=== PATIENT | male | born 1960 | race Caucasian/White ===

== ENCOUNTER 2018-02-15 08:09 | Inpatient (IN) | payer BC ==
[2018-02-08 14:36] LABS: CLARITY,URINE CLEAR (Clear); COLOR,URINE YELLOW (Yellow); GLUCOSE, URINE NEGATIVE (Neg); KETONES,URINE TRACE mg/dl (Neg); LEUKOCYTE ESTERASE ,URINE NEGATIVE (Neg); NITRITES, URINE NEGATIVE (Neg); OCCULT BLOOD,URINE NEGATIVE (Neg); PROTEIN,URINE NEGATIVE (Neg); UROBILINOGEN,URINE 0.2 E.U/dL (0.2-1.0)
[2018-02-08 14:41] LABS: BASOPHILS # (AUTO) 0.1 X10'3 (0-0.2); BASOPHILS % (AUTO) 1.1 % (0-1); EOSINOPHILS # (AUTO) 0.2 X10'3 (0-0.9); EOSINOPHILS % (AUTO) 2.4 % (0-6); LYMPHOCYTES # (AUTO) 1.4 X10'3 (1.1-4.8); LYMPHOCYTES % (AUTO) 20.7 % (21-51); MEAN CORPUSCULAR HEMOGLOBIN 33.6 PG (27.0-31.0); MEAN CORPUSCULAR HGB CONC 34.8 % (33.0-36.5); MEAN CORPUSCULAR VOLUME 96.6 FL (78-98); MEAN PLATELET VOLUME 7.4 FL (7.4-10.4); MONOCYTES # (AUTO) 0.5 X10'3 (0-0.9); MONOCYTES % (AUTO) 6.9 % (2-12); NEUTROPHILS # (AUTO) 4.7 X10'3 (1.8-7.7); NEUTROPHILS % (AUTO) 68.9 % (42-75); PRE OP HEMATOCRIT 45.4 % (42.0-52.0); PRE OP HEMOGLOBIN 15.8 g/dL (14.0-17.9); PRE OP PLATELET COUNT 335 X10'3 (140-440); RED CELL DISTRIBUTION WIDTH 13.2 % (11.5-14.5)
[2018-02-08 14:50] LABS: ALBUMIN 4.4 G/DL (3.4-5.0); ALBUMIN/GLOBULIN RATIO 1.2 (1.1-1.5); ALKALINE PHOSPHATASE 89 IU/L (46-116); BLOOD UREA NITROGEN 10 MG/DL (7-18); BUN/CREATININE RATIO 12.2 (5.4-32.0); CALCIUM 9.3 MG/DL (8.5-10.1); CHLORIDE 96 MMOL/L (99-107); CREATININE 0.82 MG/DL (0.60-1.10); PRE OP ALT 34 U/L (30-65); PRE OP ANION GAP 11 (8-16); PRE OP BILIRUB, TOTAL 0.6 MG/DL (0.0-1.0); PRE OP GLUCOSE 91 MG/DL (70-104); PRE OP SODIUM 133 MMOL/L (135-145); TOTAL CARBON DIOXIDE 26.5 MMOL/L (24-32); TOTAL PROTEIN 8.1 G/DL (6.4-8.2); eGFR > 90 ML/MIN
[2018-02-08 14:52] LABS: UA COLLECTION TYPE VOIDED
[2018-02-08 14:59] LABS: PRE OP AST 36 U/L (10-37); PRE OP POTASSIUM 4.2 MMOL/L (3.4-5.1)
[2018-02-15] VITALS (18 sets, daily range): BP systolic 90–124; BP diastolic 39–72
[~2018-02-15] VITALS: Ht 182.9 cm; Wt 103.2 kg
[2018-02-15] MEDS: potassium cl 20mEq in 1/2 NS 1,000 ML IV SCH ×2 (06:56→17:02)
[2018-02-15] MEDS: cefazolin/dext.iso 2gm/100ml 100 ML IV SCH ×2 (08:00→17:08)
[2018-02-15] MEDS: multivitamins, therapeutics tablet PO SCH (08:00)
[2018-02-15] MEDS: ascorbic acid 500mg tablet PO SCH ×2 (08:00→20:02)
[~2018-02-15 08:09] MED LIST: AMLO2.5T2 PO; ASCO500C15 PO; CYA500T PO; HYDR12.5 PO; HYDROcodone/acetaminophen 10/325mg tab PO PRN; HYDROmorphone 1 mg/ml syringe IV PRN; HYDROmorphone inj. 0.5 MG/0.5 ML DISP.SYRIN IV PRN; LOSA50TA3 PO; MULT-1085 PO; SIMV20TA5 PO; acetaminophen 325mg tablet PO ONE; acetaminophen 325mg tablet PO PRN; bisacodyl 10mg suppository rectal RC PRN; cefazolin/dext.iso 2gm/100 ML IV ONE; celeCOXIB 100mg capsule PO ONE; diphenhydrAMINE 25mg capsule PO PRN; famotidine 20mg tablet PO ONE; gabapentin 300mg capsule PO ONE; magnesium hydroxide 30ml (MOM) UD suspension PO PRN; metoclopramide 5 mg/ml inj IV ONE; ondansetron/PF 4mg/2ml inj IV PRN; oxyCODONE SR 10mg (sust. release) tab -2 tabs (20mg) PO ONE; ringers solution, lacted 1,000 ML IV SCH; tranexamic acid inj. 1,000 MG in normal saline 100ml IV soln 100 ML IV ONE; tranexamic acid inj. 1,000 MG in normal saline 100ml IV soln 90 ML IV ONE; vancomycin inj 1,500 MG in normal saline 300ml IV soln IV ONE
[2018-02-15] MEDS: aspirin 325mg tablet PO SCH (08:30)
[2018-02-15] MEDS ORDERED: LIDOcaine 1% (10mg/ml) 2ml vial ONE (08:41)
[2018-02-15] MEDS ORDERED: tetracaine 1% (10mg/ml) pres. free inj. ONE (09:11)
[2018-02-15] MEDS ORDERED: fentaNYL/PF 50MCG/1 ML 2ML syringe ONE (09:13)
[2018-02-15] MEDS ORDERED: MIDAZolam 1mg/ml 10ml vial ONE (09:13)
[2018-02-15] MEDS ORDERED: BUPIVAcaine/dex-water/PF 7.5 mg/ml 2ml ampul ONE (09:14)
[2018-02-15] MEDS ORDERED: epiNEPHrine 1 mg/ml inj ONE (09:34)
[2018-02-15] MEDS ORDERED: ketorolac trometh. 30mg/ml inj. ONE ×2 (09:34→11:14)
[2018-02-15] MEDS ORDERED: ROPIVAcaine 0.5% (5mg/ml) 30ml vial ONE ×3 (09:35→11:14)
[2018-02-15] MEDS ORDERED: cloNIDine hcl/PF 100mcg/ml inj ONE (09:35)
[2018-02-15] MEDS ORDERED: vancomycin 1,000mg inj ONE (09:35)
[2018-02-15] MEDS ORDERED: ringers solution, lacted 1,000 ML IV SCH (11:51)
[2018-02-15] MEDS ORDERED: labetalol 20mg/4ml (5mg/ml) syringe IV PRN (11:55)
[2018-02-15] MEDS ORDERED: morphine 4 MG/ML inj SYRINge IV PRN ×2 (11:55)
[2018-02-15] MEDS ORDERED: hydrALAZINE 20mg/ml inj. IV PRN (11:55)
[2018-02-15] MEDS ORDERED: ondansetron/PF 4mg/2ml inj IV PRN ×2 (11:55)
[2018-02-15] MEDS ORDERED: diphenhydrAMINE 50 mg/ml inj IV PRN (11:55)
[2018-02-15] MEDS ORDERED: fentaNYL/PF 50MCG/1 ML 2ML syringe IV PRN ×2 (11:55)
[2018-02-15] MEDS: gabapentin 300mg capsule PO SCH ×2 (13:00→20:03)
[2018-02-15] MEDS ORDERED: HYDROchlorothiazide 12.5mg capsule PO SCH (21:00)
[2018-02-15] MEDS ORDERED: atorvastatin 10mg tablet PO SCH (21:00)
[2018-02-15] MEDS ORDERED: losartan 50mg tablet PO SCH (21:00)
[2018-02-15] MEDS ORDERED: amLODIPine 5mg tablet PO SCH (21:00)
[2018-02-15] MEDS ORDERED: sennosides 8.6mg tablet PO SCH (21:00)
[2018-02-16] MEDS: cefazolin/dext.iso 2gm/100ml 100 ML IV SCH ×2 (00:56→08:31)
[2018-02-16] MEDS: potassium cl 20mEq in 1/2 NS 1,000 ML IV SCH ×3 (01:28→12:13)
[2018-02-16 01:30] VITALS: BP 123/71
[2018-02-16 05:19] LABS: BASOPHILS % (AUTO) 0.5 % (0-1); EOSINOPHILS # (AUTO) 0.2 X10'3 (0-0.9); EOSINOPHILS % (AUTO) 3.3 % (0-6); HEMATOCRIT 37.2 % (42.0-52.0); HEMOGLOBIN 12.7 g/dl (14.0-17.9); LYMPHOCYTES # (AUTO) 0.9 X10'3 (1.1-4.8); LYMPHOCYTES % (AUTO) 14.8 % (21-51); MEAN CORPUSCULAR HEMOGLOBIN 33.2 PG (27.0-31.0); MEAN CORPUSCULAR VOLUME 97.6 FL (78-98); MEAN PLATELET VOLUME 7.5 FL (7.4-10.4); MONOCYTES # (AUTO) 0.6 X10'3 (0-0.9); MONOCYTES % (AUTO) 9.6 % (2-12); NEUTROPHILS # (AUTO) 4.6 X10'3 (1.8-7.7); NEUTROPHILS % (AUTO) 71.8 % (42-75); PLATELET COUNT 252 X10'3 (140-440); RED BLOOD COUNT 3.81 X10'6 (4.70-6.10); RED CELL DISTRIBUTION WIDTH 12.9 % (11.5-14.5); WHITE BLOOD COUNT 6.4 X10'3 (4.5-11.0)
[2018-02-16] MEDS: HYDROcodone/acetaminophen 10/325mg tab PO PRN ×2 (05:45→12:08)
[2018-02-16 06:00] VITALS: BP 130/69
[2018-02-16 06:41] LABS: ANION GAP 7 (8-16); CHLORIDE 103 MMOL/L (99-107); POTASSIUM 4.1 MMOL/L (3.5-5.1); SODIUM 137 MMOL/L (135-145); TOTAL CARBON DIOXIDE 27.2 MMOL/L (24-32)
[2018-02-16] MEDS: gabapentin 300mg capsule PO SCH ×2 (08:31→13:12)
[2018-02-16] MEDS: multivitamins, therapeutics tablet PO SCH (08:31)
[2018-02-16] MEDS: ascorbic acid 500mg tablet PO SCH (08:32)
[2018-02-16] MEDS: aspirin 325mg tablet PO SCH (08:32)
[2018-02-16] MEDS ORDERED: ASPI-1 PO (15:47)
== END 2018-02-16 17:45 | disposition home or self-care (01) | DRG 470 ==
LOC: PAS IN 08:09 → EDSTATUS 12:30 → ORTHO 4S 13:30
PROVIDERS: ADMIT Orthopaedic Surgery; ATTEND Orthopaedic Surgery
PROC: 0SRB06Z Replacement of Left Hip Joint with Oxidized Zirconium on Polyethylene Synthetic Substitute, Open Approach (ICD-10-PCS; principal; 2018-02-15 10:32)
DX: M16.12 Unilateral primary osteoarthritis, left hip (principal); D62 Acute posthemorrhagic anemia; E78.5 Hyperlipidemia, unspecified; I10 Essential (primary) hypertension; Z79.82 Long term (current) use of aspirin; Z72.89 Other problems related to lifestyle; Z79.899 Other long term (current) drug therapy
CPT/HCPCS: 36415; 71046; 72170; 80051; 80053; 81003; 85025; 86885; 86900; 86901; 87070; 97110; 97116; 97161; 97530; A4615; A7000; C1758; C1776; G0378; J0171; J0690; J0735; J1885; J2250; J2765; J2795; J3010; J3370; J3490; J7030; J7120